=== PATIENT | female | born 1970 | race Caucasian/White ===

== ENCOUNTER → 2017-08-17 15:25 | Outpatient (CLI) | payer OTHER, SELFPAY ==
--- NOTE | 2017-08-17 15:26 | DI.MG.S_ITS ---
BILATERAL DIGITAL SCREENING MAMMOGRAM 3D/2D WITH CAD: 08/17/2017 CLINICAL: Routine screening. Comparison is made to exam dated: 09/30/2012 [facility]. The tissue of both breasts is heterogeneously dense. This may lower the sensitivity of mammography. Current study was also evaluated with a Computer Aided Detection (CAD) system. No significant masses, calcifications, or other findings are seen in either breast. There has been no significant interval change. IMPRESSION: NEGATIVE There is no mammographic evidence of malignancy. A 1 year screening mammogram is recommended. This exam was interpreted at Station ID: [id number]. NOTE: For mammograms, a report in lay terms will be sent to the patient. Approximately 15% of breast malignancies will not be visualized mammographically. In the management of a palpable breast mass, a negative mammogram must not discourage biopsy of a clinically suspicious lesion. Electronically Signed By: Nicholas de souza/berhane:08/17/2017 16:20:24 letter sent: Normal Exam ACR BI-RADS Category 1: Negative [id number]
== END ==
PROVIDERS: Family Provider Family Medicine; PCP Family Medicine; Visit Provider Family Medicine
DX: Z12.31 Encounter for screening mammogram for malignant neoplasm of breast (principal)
CPT/HCPCS: 77063; 77067

== ENCOUNTER → 2018-03-24 14:11 | Outpatient (CLI) | payer OTHER, SELFPAY ==
--- NOTE | 2018-03-24 14:14 | DI.RAD.S_ITS ---
PROCEDURE: XR CERVICAL SPINE 2V OR 3V INDICATIONS: Chronic neck pain TECHNIQUE: 3 view(s) of the cervical spine were acquired. COMPARISON: [facility], , CERVICAL SPINE 2 OR 3 VIEWS, 08/15/2016, 14:56. FINDINGS: Bones: No fractures or dislocations to the T1 level. The lateral masses of C1 appear intact on the odontoid view. No suspicious bony lesions. Only mild degenerative disc height reduction is present at C5-6 through C7-T1, without worsening over time, without subluxation. Soft tissues: No prevertebral soft tissue swelling. IMPRESSION: Stable appearing cervical spine with mild degenerative disc disease from C5-C7, and no sign of trauma or subluxation. Dictated by: Brody Smith M.D. on 03/24/2018 at 16:20 Approved by: Brody Smith M.D. on 03/24/2018 at 16:23
== END ==
PROVIDERS: PCP Family Medicine; Visit Provider Registered Nurse
DX: M50.322 Other cervical disc degeneration at C5-C6 level (principal)
CPT/HCPCS: 72040

== ENCOUNTER → 2019-01-31 17:47 | Outpatient (CLI) | payer OTHER, SELFPAY | PROVIDERS: PCP Family Medicine; Visit Provider Physician Assistant | DX: L02.91 Cutaneous abscess, unspecified (principal) | CPT/HCPCS: 87070; 87075; 87077; 87147; 87186; 87205 ==

== ENCOUNTER → 2019-04-04 20:00 | Outpatient (CLI) | payer OTHER, SELFPAY ==
[2019-04-04 20:43] LABS: Influenza A - CEPHEID Flu A NEGATIVE (NEGATIVE); Influenza B - CEPHEID Flu B NEGATIVE (NEGATIVE)
== END ==
PROVIDERS: PCP Family Medicine; Visit Provider Nurse Practitioner
DX: R05 Cough (principal)
CPT/HCPCS: 87502

== ENCOUNTER → 2019-04-09 14:20 | Outpatient (CLI) | payer OTHER, SELFPAY ==
--- NOTE | 2019-04-09 14:22 | DI.RAD.S_ITS ---
PROCEDURE: XR CHEST 2V INDICATIONS: r/o pneumonia TECHNIQUE: 2 views of the chest were acquired. COMPARISON: None. FINDINGS: Surgical changes and devices: None. Lungs and pleura: Lungs are clear. No pleural effusions or pneumothorax. Mediastinum: Mediastinal contours are normal. Heart size is normal. Bones and chest wall: No suspicious bony abnormalities. Soft tissues appear unremarkable. IMPRESSION: 1. No evidence of pneumonia. Dictated by: Nicholas Meza M.D. on 04/09/2019 at 13:49 Approved by: Nicholas Meza M.D. on 04/09/2019 at 13:50
== END ==
PROVIDERS: PCP Family Medicine; Referring Provider Physician Assistant; Visit Provider Physician Assistant
DX: J40 Bronchitis, not specified as acute or chronic (principal)
CPT/HCPCS: 71046

== ENCOUNTER → 2019-05-06 14:56 | Outpatient (CLI) | payer OTHER, SELFPAY ==
[2019-05-08 05:38] LABS: COVID19 Sendout Not Detected (Not Detected)
== END ==
PROVIDERS: PCP Family Medicine; Visit Provider Family Medicine
DX: J40 Bronchitis, not specified as acute or chronic (principal)
CPT/HCPCS: 87635

== ENCOUNTER → 2020-01-02 12:13 | Outpatient (CLI) | payer OTHER, SELFPAY ==
--- NOTE | 2020-01-02 12:14 | DI.RAD.S_ITS ---
PROCEDURE: XR FOOT RT MIN 3V INDICATIONS: right heel pain TECHNIQUE: 3 views of the foot were acquired. COMPARISON: [facility], , FOOT 3V LEFT, 11/02/2015, 9:03. FINDINGS: Bones: No fractures or dislocations. No suspicious bony lesions. There is a small plantar fascia insertion spur at the posterior calcaneus. Soft tissues: No tibiotalar joint effusion. Achilles tendon appears normal. IMPRESSION: Normal for age, a definite source of current foot pain symptoms is not seen but please correlate for possible focal plantar fasciitis associated with the small plantar fascia insertion spur at the posterior calcaneus. Dictated by: Brody Smith M.D. on 01/02/2020 at 13:02 Approved by: Brody Smith M.D. on 01/02/2020 at 13:03
== END ==
PROVIDERS: PCP Family Medicine; Referring Provider Family Medicine; Visit Provider Family Medicine
DX: M79.671 Pain in right foot (principal)
CPT/HCPCS: 73630

== ENCOUNTER → 2020-03-03 11:03 | Outpatient (CLI) | payer OTHER, SELFPAY ==
[2020-03-03 12:17] LABS: Add Manual Diff / Slide Review NO; Basophils Absolute Auto 0 /uL (0-100); Basophils Percent Auto 0.6 % (0-2); Eosinophils Absolute Auto 300 /uL (0-450); Eosinophils Percent Auto 5.4 % (2-4); Hematocrit 37.9 % (36-46); Hemoglobin 12.5 g/dL (12.0-16.0); Lymphocytes Absolute Auto 1700 /uL (1100-4500); Lymphocytes Percent Auto 27.9 % (25-40); Mean Corpuscular HGB Conc 33.1 % (30-36); Mean Corpuscular Hemoglobin 27.4 PG (26-34); Monocytes Absolute Auto 400 /uL (0-900); Monocytes Percent Auto 6.6 % (3-14); Neutrophils Absolute Auto 3500 /uL (1500-7000); Neutrophils Percent Auto 59.5 % (50-75); Platelet Count 257 X10^3/uL (150-400); Red Blood Cell Count 4.56 X10^6/uL (4.0-5.2); Red Cell Distribution Width 14.6 % (11.6-14.8); White Blood Cell Count 5.9 X10^3/uL (4.5-11.0)
[2020-03-03 12:39] LABS: Erythrocyte Sedimentation Rate 17 MM/HR (0-20)
[2020-03-03 12:47] LABS: Alanine Aminotransferase 32 IU/L (<35); Albumin 4.4 g/dL (3.5-5.0); Albumin Globulin Ratio 1.4 (1.0-2.8); Alkaline Phosphatase 73 U/L (38-126); Aspartate Aminotransferase 27 IU/L (14-36); BUN Creatinine Ratio 23.5 (6-22); Bilirubin Total 0.3 mg/dL (0.2-1.3); Blood Urea Nitrogen 20 mg/dL (7-17); C-Reactive Protein Quant 0.6 mg/dL (<1.0); Calcium 9.5 mg/dL (8.4-10.2); Carbon Dioxide 28 mmol/L (22-32); Chloride 106 mmol/L (98-107); Estimated Glomerular Filt Rate > 60.0 mL/min (>60); Globulin 3.1 g/dL (1.7-4.1); Glucose 103 mg/dL (70-100); HEMOLYSIS < 15 (0-50); Potassium 3.9 mmol/L (3.4-5.1); Sodium 141 mmol/L (137-145); Total Protein 7.5 g/dL (6.3-8.2)
== END ==
PROVIDERS: PCP Family Medicine; Referring Provider Family Medicine; Visit Provider Family Medicine
DX: K92.1 Melena (principal)
CPT/HCPCS: 36415; 80053; 85025; 85651; 86140

== ENCOUNTER 2021-08-05 19:58 | Emergency (ER) | payer OTHER, SELFPAY ==
[2021-08-05 20:18] VITALS: BP 129/86; PULSE 77; RESP 16; TEMP 36.1; O2SAT 98; BMI 29.9
--- NOTE | 2021-08-05 23:24 | ED.WOUNDLAC ---
HPI - Wound/Laceration General Chief Complaint: Wound/Laceration Stated Complaint: SPLIT RIGHT HODGSON OPEN Time Seen by Provider: 08/05/21 23:21 Mode of arrival: Family Vehicle History of Present Illness HPI narrative: 50F nonsmoker without significant medical history presents with an accidental laceration to her right hodgson suffered earlier tonight. She and her were moving a large bookshelf when it fell and injured her leg. She's been bleeding minimally and has some pain with ambualtion, but it is minimal. She denies any other injuries otherwise well and free of complaint. Her tetanus will need to be updated. Related Data Previous Rx's Medication Instructions Recorded methocarbamol 500 mg tablet See Rx Instructions PO Q6-8H PRN 02/11/21 muscle spasm #6 tabs cephalexin 500 mg capsule 500 mg PO Q6H 7 days #28 caps 08/05/21 Allergies Allergy/AdvReac Type Severity Reaction Status Date / Time Penicillins [PENICILLINS] Allergy Unknown HIVES Verified 08/05/21 20:21 Sulfa (Sulfonamide Allergy Unknown HIVES Verified 08/05/21 20:21 Antibiotics) [SULFA (SULFONAMIDE ANTIBIOTICS)] Review of Systems Review of Systems Narrative: GENERAL: Denies chills, fatigue, malaise, fever, sweats. HEENT: Denies sinus pain, ear pain, sore throat, difficulty swallowing, dizziness. RESPIRATORY: Denies dyspnea, cough, wheezing, hemoptysis, sputum. CARDIOVASCULAR: Denies chest pain, palpitations, orthopnea, edema, GASTROINTESTINAL: Denies nausea, vomiting, abdominal pain, diarrhea, constipation, melena. : Denies dysuria, frequency, incontinence, hematuria, urinary retention. MUSCULOSKELETAL: denies weakness, joint pain, or bony pain SKIN: See HPI NEUROLOGIC: Denies weakness, headache, numbness, change in speech, confusion, seizures, incoordination. PSYCHIATRIC: No concerning psychosocial issues. 12 point review of systems is negative except for those stated above Patient History Medical History Menorrhagia Social History marital status: number of children: 2 household members: spouse and family lives independently: Yes caregiver/support person: No housing: house education level: college occupational status: employed Smoking Status: Never smoker second hand exposure: No alcohol intake: never substance use type: does not use Smoking Status: Never smoker Substance Use Type: does not use Exam Narrative Exam Narrative: GEN: AOx3 and in mild distress EYES: Pupils are equal, round, and reactive to light and accommodation. Extraoccular muscles are intact bilaterally. There is no subconjunctival hemorrhage or exudate. CHEST: Lungs are clear to auscultation bilaterally and free of wheezes, rales, or rhonchi. Heart rate is regular rhythm, there are no murmurs, clicks, rubs, or gallops. There is no chest wall tenderness. ABD: Abdomen is soft and nontender. There is no guarding or rebound. Bowel sounds are normal in all 4 quadrants. There is no mass or organomegaly. EXT: Right anterior hodgson has a 6 cm irregular laceration with minimal bleeding. There is no foreign body, deep structures intact Full painless ROM of all extremities with no loss of sensation or strength. SKIN: Warm, pink, and dry. No erythema or rash Initial Vital Signs Initial Vital Signs: Vital Signs Temperature 97 F L 08/05/21 20:18 Pulse Rate 77 08/05/21 20:18 Respiratory Rate 16 08/05/21 20:18 Blood Pressure 129/86 08/05/21 20:18 Pulse Oximetry 98 08/05/21 20:18 Oxygen Delivery Method 08/05/21 20:18 Procedures Laceration Repair Laceration 1: Site: lower extremity Side (If applicable): right Size (cm): 6 Description: irregular and clean Depth: simple, single layer Local Anesthetic: lidocaine 1% and with bicarb Amount of anesthesia used (mL): 6 Pre-repair: wound explored and cleansed with chlorhexadine Skin layer closed with: nylon Skin layer suture size: 4-0 Number of sutures: 6 Technique: simple, interrupted and horizontal mattress Course Orders Ordered: Discontinued Medications Diphtheria/Tetanus/Acell Pertussis (Tet,Diph,Pertuss(Acell),Vac/Pf 0.5 Ml Syringe) 0.5 ml IM .ONCE ONE Stop: 08/05/21 20:22 Last Admin: 08/05/21 23:37 Dose: 0.5 ml Documented By: SIERRA Tetanus/Diphtheria Toxoids (Tetanus Diphtheria Toxoids 0.5 Ml Vial) 0.5 ml IM .ONCE ONE Stop: 08/05/21 23:33 Last Admin: 08/05/21 23:38 Dose: Not Given Documented By: SIERRA Vital Signs Vital signs: Vital Signs - 8 hr 08/05/21 20:18 Temperature 97 F L Pulse Rate 77 Respiratory Rate 16 Blood Pressure 129/86 Pulse Oximetry 98 Oxygen Delivery Method Room Air Discharge Plan Departure Patient Disposition: Home Clinical Impression: Laceration of right lower leg Instructions: DI for Laceration Repair Activity Restrictions/Additional Instructions: *You have been diagnosed with [right lower extremity laceration] *What to do: *Please continue to take your regular medications as directed. [x ] New medication prescriptions sent to your pharmacy: [[facility]] [ ] New medication written as a paper prescription [ ] No new medications given * Please keep the wound clean and dry to the best of your ability. Please monitor for signs of infection such as redness to the skin or increasing pain. Have the sutures/ramakrishna removed by your doctor in about 7 days. If you are unable to get into your doctor, we would be happy to remove the sutures/ramakrishna in that same timeframe. *If you do not have a primary care provider please contact the [facility] Resource line at [phone]. They will ask some questions about your medical history and help get you set up with a doctor in the community. *Return to Emergency Department if you should have any new, worsening or concerning symptoms, such as [fever greater than 101 F, shaking chills, worsening pain, persistent vomiting or other bothersome symptoms] Prescriptions: New cephalexin 500 mg capsule 500 mg PO Q6H 7 Days Qty: 28 0RF No Action methocarbamol 500 mg tablet See Rx Instructions PO Q6-8H PRN (Reason: muscle spasm) Qty: 6 0RF Rx Instructions: 1-2 tablets PO every 6-8 hours PRN; Referrals: Crystal Cruz MD [Primary Care Provider] - Visit Report Forms: Patient Portal/API
[2021-08-05] MEDS: TET,DIPH,PERTUSS(ACELL),VAC/PF 0.5 ML SYRINGE IM (23:37)
== END 2021-08-06 00:13 | disposition home or self-care (01) ==
PROVIDERS: Emergency Provider Emergency Medicine; PCP Family Medicine
DX: S81.811A Laceration without foreign body, right lower leg, initial encounter (principal); W19.XXXA Unspecified fall, initial encounter
CPT/HCPCS: 12002; 90471; 99283; 90715

== ENCOUNTER → 2021-08-19 07:55 | Outpatient (CLI) | payer OTHER, SELFPAY ==
[2021-08-19 10:10] LABS: Cholesterol 243 mg/dL (140-199); HDL Cholesterol 53 mg/dL (40-60); LDL Cholesterol Calculated 165 mg/dL (<100); Triglycerides 126 mg/dL (35-150)
== END ==
PROVIDERS: PCP Family Medicine; Referring Provider Family Medicine; Visit Provider Family Medicine
DX: E78.5 Hyperlipidemia, unspecified (principal)
CPT/HCPCS: 36415; 80061

== ENCOUNTER → 2022-01-21 14:25 | Outpatient (CLI) | payer OTHER, SELFPAY ==
--- NOTE | 2022-01-21 14:27 | DI.RAD.S_ITS ---
PROCEDURE: XR CHEST 2V INDICATIONS: Increased albuterol requirement, crackles on exam TECHNIQUE: 2 views of the chest were acquired. COMPARISON: [facility], CR, XR CHEST 2V, 04/09/2019, 14:16. FINDINGS: Surgical changes and devices: None. Lungs and pleura: Lungs are clear. No pleural effusions or pneumothorax. Mediastinum: Mediastinal contours are normal. Heart size is normal. Bones and chest wall: No suspicious bony abnormalities. Soft tissues appear unremarkable. IMPRESSION: No acute cardiopulmonary process demonstrated radiographically. Dictated by: Daniel Hamlin M.D. on 01/21/2022 at 16:01 Approved by: Daniel Hamlin M.D. on 01/21/2022 at 16:01
== END ==
PROVIDERS: PCP Family Medicine; Referring Provider Family Medicine; Visit Provider Family Medicine
DX: R06.2 Wheezing (principal)
CPT/HCPCS: 71046

== ENCOUNTER → 2022-03-11 16:35 | Outpatient (CLI) | payer OTHER, SELFPAY ==
--- NOTE | 2022-03-11 16:36 | DI.RAD.S_ITS ---
PROCEDURE: XR HAND LT MIN 3V INDICATIONS: Pain left thumb at MCP suspect OA TECHNIQUE: 3 views of the hand(s) acquired. COMPARISON: None. FINDINGS: Bones: No fractures or dislocations. Carpal bones are normally aligned. No suspicious bony lesions. No appreciable joint space narrowing. No erosions. Soft tissues: No suspicious soft tissue calcifications. IMPRESSION: No appreciable arthritic change. Dictated by: Mariann Beebe M.D. on 03/11/2022 at 18:28 Approved by: Mariann Beebe M.D. on 03/11/2022 at 18:29
== END ==
PROVIDERS: PCP Family Medicine; Referring Provider Physician Assistant; Visit Provider Physician Assistant
DX: M79.645 Pain in left finger(s) (principal)
CPT/HCPCS: 73130

== ENCOUNTER 2022-05-13 00:57 | Emergency (ER) | payer OTHER, SELFPAY ==
[2022-05-13] VITALS (18 sets, daily range): BP systolic 88–125; BP diastolic 51–75; PULSE 64–83; RESP 32; TEMP 36.4; O2SAT 94–100; BMI 29.9
--- NOTE | 2022-05-13 01:04 | ED_ITS ---
HPI - General Adult General Chief complaint: Syncope Stated complaint: colonoscopy prep done/vomiting/passed out Time Seen by Provider: 05/13/22 01:03 History of Present Illness HPI narrative: 51-year-old femaleNonsmoker without any chronic medical problems presents with her in the chief complaint of multiple episodes of nausea, vomiting and diarrhea along with at least 1 syncopal episode while on a toy. She is scheduled for a routine colonoscopy later this morning and had been in her normal state of health until employing her surgeons bowel prep. She would made it through most of the day and then last evening started developing nausea and vomiting. Her syncopal episode happened while on the toilet while she was both vomiting and having loose stools. She is had no fever or chills. She denies exposure to antibiotics or bad foods. She denies exposure to other ill persons. She feels worn out, dizzy and lightheaded Related Data Allergies Allergy/AdvReac Type Severity Reaction Status Date / Time Penicillins [PENICILLINS] Allergy Unknown HIVES Verified 05/13/22 07:30 Sulfa (Sulfonamide Allergy Unknown HIVES Verified 05/13/22 07:30 Antibiotics) [SULFA (SULFONAMIDE ANTIBIOTICS)] Review of Systems Review of Systems Narrative: GENERAL: See HPI HEENT: Denies sinus pain, ear pain, sore throat, difficulty swallowing, dizziness. RESPIRATORY: Denies dyspnea, cough, wheezing, hemoptysis, sputum. CARDIOVASCULAR: Denies chest pain, palpitations, orthopnea, edema, GASTROINTESTINAL: See HPI : Denies dysuria, frequency, incontinence, hematuria, urinary retention. MUSCULOSKELETAL: denies weakness, joint pain, or bony pain SKIN: Denies rash, skin lesions, or other NEUROLOGIC: Denies weakness, headache, numbness, change in speech, confusion, seizures, incoordination. PSYCHIATRIC: No concerning psychosocial issues. 12 point review of systems is negative except for those stated above Patient History Medical History Menorrhagia Social History marital status: number of children: 2 household members: spouse and family lives independently: Yes caregiver/support person: No housing: house education level: college occupational status: employed Smoking Status: Never smoker second hand exposure: No alcohol intake: never substance use type: does not use Smoking Status: Never smoker Substance Use Type: does not use Exam Narrative Exam Narrative: GENERAL: 51[] year old patient appears stated age. Well-developed patient, in mild distress. Holding an emesis bag HEAD: Atraumatic. Normocephalic. EYES: Pupils equal round and reactive. Extraocular motions intact. No scleral icterus. No injection or drainage. ENT: Nose without bleeding, purulent drainage. Throat without erythema, tonsillar hypertrophy or exudate. Airway patent. NECK: Trachea midline. Non tender CARDIOVASCULAR: Regular rate and rhythm without murmurs, gallops, or rubs. RESPIRATORY: Clear to auscultation. Breath sounds equal bilaterally. No wheezes, rales, or rhonchi. GASTROINTESTINAL: Abdomen soft, non-tender, nondistended. EXTREMITIES: No edema or joint tenderness. BACK: Nontender without deformity or crepitance. No flank tenderness. NEURO: AOx3. SKIN: No rash or erythema of visible areas Initial Vital Signs Initial Vital Signs: Vital Signs Temperature 97.6 F 05/13/22 01:06 Pulse Rate 81 05/13/22 01:06 Respiratory Rate 32 H 05/13/22 01:06 Blood Pressure 125/75 05/13/22 01:06 Pulse Oximetry 100 05/13/22 01:06 Oxygen Delivery Method Room Air 05/13/22 01:06 Course Orders Ordered: Discontinued Medications Aspirin (Aspirin 81 Mg Chew Tab) 324 mg PO NOW ONE Stop: 05/13/22 01:12 Last Admin: 05/13/22 01:50 Dose: 324 mg Documented By: GLADYS Sodium Chloride (Normal Saline 0.9%) 1,000 mls @ 1,000 mls/hr IV BOLUS ONE Stop: 05/13/22 04:18 Last Infusion: 05/13/22 03:29 Dose: 0 mls/hr Documented By: Admin: 05/13/22 03:25 Dose: 1,000 mls/hr Documented By: GLADYS Ondansetron HCl (Ondansetron 4 Mg/2 Ml Inj) 4 mg IV NOW ONE Stop: 05/13/22 03:20 Last Admin: 05/13/22 03:26 Dose: 4 mg Documented By: GLADYS Pantoprazole Sodium (Pantoprazole 40 Mg Vial) 40 mg IV NOW ONE Stop: 05/13/22 03:20 Last Admin: 05/13/22 03:26 Dose: 40 mg Documented By: GLADYS Reevaluation(s) Reevaluation #1: Patient feeling better after above-stated therapies Consultations Consultation #1: Discussed with on-call surgeon, Dr. Chavez, this patient is scheduled to have colonoscopy with her, she recommends continuing to hydrate, happy with Zofran and Protonix, asked that we keep patient in the emergency department and she will take her to the endoscopy suite at about 715 in the morning Vital Signs Vital signs: Vital Signs - 8 hr 05/13/22 01:06 Temperature 97.6 F Pulse Rate 81 Respiratory Rate 32 H Blood Pressure 125/75 Pulse Oximetry 100 Oxygen Delivery Method Room Air Medical Decision Making Lab Data 05/13/22 01:15 05/13/22 01:15 Labs: Lab Results 05/13/22 05/13/22 05/13/22 Range/Units 01:15 01:15 01:15 WBC 9.9 (4.5-11.0) X10^3/uL RBC 5.39 H (4.0-5.2) X10^6/uL Hgb 16.1 H (12.0-16.0) g/dL Hct 47.5 H (36-46) % MCV 88.0 (80-100) fL MCH 29.9 (26-34) PG MCHC 33.9 (30-36) % RDW 13.4 (11.6-14.8) % Plt Count 301 (150-400) X10^3/uL Neut % (Auto) 64.3 (50-75) % Lymph % (Auto) 26.5 (25-40) % Dougherty % (Auto) 6.1 (3-14) % Eos % (Auto) 2.6 (2-4) % Baso % (Auto) 0.5 (0-2) % Neut # (Auto) 6400 (0333-7859) /uL Lymph # (Auto) 2600 (4866-0973) /uL Dougherty # (Auto) 600 (0-900) /uL Eos # (Auto) 300 (0-450) /uL Baso # (Auto) 0 (0-100) /uL PT 11.9 (10.1-12.7) SECONDS INR 1.0 (0.9-1.3) APTT 30 (26-36) SECONDS Sodium 140 (137-145) mmol/L Potassium 3.9 (3.4-5.1) mmol/L Chloride 102 (98-107) mmol/L Carbon Dioxide 20 L (22-32) mmol/L BUN 15 (7-17) mg/dL Creatinine 0.94 (0.52-1.04) mg/dL Estimated GFR > 60 (>60) mL/min BUN/Creatinine Ratio 16.0 (6-22) Glucose 175 H (70-100) mg/dL Calcium 10.2 (8.4-10.2) mg/dL Magnesium 2.0 (1.6-2.3) mg/dL Total Bilirubin 0.8 (0.2-1.3) mg/dL AST 31 (14-36) IU/L ALT 44 H (<35) IU/L Alkaline Phosphatase 88 (38-126) U/L Total Creatine Kinase 107 (30-135) U/L CK-MB (CK-2) 1.08 (<2.37) ng/mL CK-MB (CK-2) Rel Index 1.0 L (1.5-5.0) % Troponin I < 0.012 (0.01-0.034) ng/mL Total Protein 9.1 H (6.3-8.2) g/dL Albumin 5.3 H (3.5-5.0) g/dL Globulin 3.8 (1.7-4.1) g/dL Albumin/Globulin Ratio 1.4 (1.0-2.8) Lipase 121 (23-300) U/L SARS-CoV-2 (PCR) (Negative) 05/13/22 Range/Units 01:25 WBC (4.5-11.0) X10^3/uL RBC (4.0-5.2) X10^6/uL Hgb (12.0-16.0) g/dL Hct (36-46) % MCV (80-100) fL MCH (26-34) PG MCHC (30-36) % RDW (11.6-14.8) % Plt Count (150-400) X10^3/uL Neut % (Auto) (50-75) % Lymph % (Auto) (25-40) % Dougherty % (Auto) (3-14) % Eos % (Auto) (2-4) % Baso % (Auto) (0-2) % Neut # (Auto) (7053-1421) /uL Lymph # (Auto) (9379-3207) /uL Dougherty # (Auto) (0-900) /uL Eos # (Auto) (0-450) /uL Baso # (Auto) (0-100) /uL PT (10.1-12.7) SECONDS INR (0.9-1.3) APTT (26-36) SECONDS Sodium (137-145) mmol/L Potassium (3.4-5.1) mmol/L Chloride (98-107) mmol/L Carbon Dioxide (22-32) mmol/L BUN (7-17) mg/dL Creatinine (0.52-1.04) mg/dL Estimated GFR (>60) mL/min BUN/Creatinine Ratio (6-22) Glucose (70-100) mg/dL Calcium (8.4-10.2) mg/dL Magnesium (1.6-2.3) mg/dL Total Bilirubin (0.2-1.3) mg/dL AST (14-36) IU/L ALT (<35) IU/L Alkaline Phosphatase (38-126) U/L Total Creatine Kinase (30-135) U/L CK-MB (CK-2) (<2.37) ng/mL CK-MB (CK-2) Rel Index (1.5-5.0) % Troponin I (0.01-0.034) ng/mL Total Protein (6.3-8.2) g/dL Albumin (3.5-5.0) g/dL Globulin (1.7-4.1) g/dL Albumin/Globulin Ratio (1.0-2.8) Lipase (23-300) U/L SARS-CoV-2 (PCR) Negative (Negative) Point of Care Testing Glucose POC 156 Point of care testing: Point of Care Testing Glucose POC 156 [facility] Narrative Medical decision making narrative: [51] year old patient presents with nausea, vomiting and diarrhea after she started her colon prep Multiple etiologies for patient's symptoms considered including, but not limited to: [Intolerance to: Prep, gastroenteritis versus other] Prior Charts reviewed in our EMR Primary Historian: patient Labs reviewed and interpreted by myself: No significant abnormal findings that would require a specific or immediate intervention Consultations: Discussed with Dr. Chavez (Gen Surg) happy with treatments given, request we keep her in the emergency department until later in the morning and she will take 2 endoscopy to perform her regularly scheduled scopes Patient's symptoms improved over duration of stay with above-stated therapies. Findings and discharge diagnosis discussed with patient/family followed by verbalization of understanding Return precautions discussed with patient/family whom verbalize understanding of diagnosis and plan Discharge Plan Departure Patient Disposition: Home Clinical Impression: Vasovagal syncope, Diarrhea, Vomiting Instructions: Diarrhea Activity Restrictions/Additional Instructions: Please proceed directly to [place] registration, the OR crew and endoscopy team are expected Referrals: Andreina Chavez MD [Physician] - Crystal Cruz MD [Primary Care Provider] - Stand Alone Forms: Patient Portal/API
[2022-05-13 01:25] LABS: Add Manual Diff / Slide Review NO; Basophils Absolute Auto 0 /uL (0-100); Basophils Percent Auto 0.5 % (0-2); Eosinophils Absolute Auto 300 /uL (0-450); Eosinophils Percent Auto 2.6 % (2-4); Hematocrit 47.5 % (36-46); Hemoglobin 16.1 g/dL (12.0-16.0); Lymphocytes Absolute Auto 2600 /uL (1100-4500); Lymphocytes Percent Auto 26.5 % (25-40); Mean Corpuscular HGB Conc 33.9 % (30-36); Mean Corpuscular Hemoglobin 29.9 PG (26-34); Monocytes Absolute Auto 600 /uL (0-900); Monocytes Percent Auto 6.1 % (3-14); Neutrophils Absolute Auto 6400 /uL (1500-7000); Neutrophils Percent Auto 64.3 % (50-75); Platelet Count 301 X10^3/uL (150-400); Red Blood Cell Count 5.39 X10^6/uL (4.0-5.2); Red Cell Distribution Width 13.4 % (11.6-14.8); White Blood Cell Count 9.9 X10^3/uL (4.5-11.0)
[2022-05-13 01:34] LABS: Prothrombin Time 11.9 SECONDS (10.1-12.7)
[2022-05-13 01:37] LABS: PTT Partial Thromboplastin Tim 30 SECONDS (26-36)
[2022-05-13 01:40] LABS: Alanine Aminotransferase 44 IU/L (<35); Albumin 5.3 g/dL (3.5-5.0); Albumin Globulin Ratio 1.4 (1.0-2.8); Alkaline Phosphatase 88 U/L (38-126); Aspartate Aminotransferase 31 IU/L (14-36); Bilirubin Total 0.8 mg/dL (0.2-1.3); Blood Urea Nitrogen 15 mg/dL (7-17); Calcium 10.2 mg/dL (8.4-10.2); Carbon Dioxide 20 mmol/L (22-32); Chloride 102 mmol/L (98-107); Creatine Kinase 107 U/L (30-135); Estimated Glomerular Filt Rate > 60 mL/min (>60); Globulin 3.8 g/dL (1.7-4.1); Glucose 175 mg/dL (70-100); HEMOLYSIS < 15 (0-50); Lipase 121 U/L (23-300); Potassium 3.9 mmol/L (3.4-5.1); Sodium 140 mmol/L (137-145); Total Protein 9.1 g/dL (6.3-8.2)
[2022-05-13 01:50] LABS: COVID19 -Nasal RAPID Negative (Negative)
[2022-05-13] MEDS: ASPIRIN 81 MG CHEW TAB 324 MG PO (01:50)
[2022-05-13 01:52] LABS: Troponin I < 0.012 ng/mL (0.01-0.034)
[2022-05-13 01:55] LABS: Creatine Kinase MB 1.08 ng/mL (<2.37)
[2022-05-13] MEDS: SODIUM CHLORIDE 0.9% 1,000 ML 1000 ML IV (03:25)
[2022-05-13] MEDS: ONDANSETRON 4 MG/2 ML INJ IV (03:26)
[2022-05-13] MEDS: PANTOPRAZOLE 40 MG VIAL IV (03:26)
== END 2022-05-13 07:14 | disposition home or self-care (01) ==
PROVIDERS: Emergency Provider Emergency Medicine; PCP Family Medicine
DX: R55 Syncope and collapse (principal); R19.7 Diarrhea, unspecified; Z20.822 Contact with and (suspected) exposure to COVID-19; R11.10 Vomiting, unspecified
CPT/HCPCS: 36415; 80053; 82550; 82553; 83690; 83735; 84484; 85025; 85610; 85730; 87635; 93005; C9803; C9113; J2405

== ENCOUNTER 2022-05-13 07:15 | Day surgery (SDC) | payer OTHER, SELFPAY ==
[2022-05-13 07:37] VITALS: BP 123/89; PULSE 77; RESP 16; TEMP 36.4; O2SAT 97; BMI 30.7
--- NOTE | 2022-05-13 07:45 | P.HP_ITS ---
History of Present Illness History of Present Illness Date Patient Seen: 05/13/22 Time Patient Seen: 07:45 Chief complaint: Screening Colonoscopy Narrative: Last colonoscopy was 20 yrs ago. Father has colon polyps. No current symptoms PFSH Medical History Menorrhagia Social History marital status: number of children: 2 household members: spouse and family lives independently: Yes caregiver/support person: No housing: house education level: college occupational status: employed Smoking Status: Never smoker second hand exposure: No alcohol intake: never substance use type: does not use Meds Home Medications and Allergies Allergies Allergy/AdvReac Type Severity Reaction Status Date / Time Penicillins [PENICILLINS] Allergy Unknown HIVES Verified 05/13/22 07:30 Sulfa (Sulfonamide Allergy Unknown HIVES Verified 05/13/22 07:30 Antibiotics) [SULFA (SULFONAMIDE ANTIBIOTICS)] Review of Systems Review of Systems ROS: Yes All systems reviewed with the patient and are negative except as otherwise documented Exam Const General: cooperative and healthy appearing [facility] Head: normal to inspection, normocephalic and atraumatic Eyes General: appearance normal, both eyes and all related structures Sclera: sclerae normal Neck Neck: trachea midline Resp Effort & Inspection: normal respiratory effort and able to speak in complete sentences GI Palpation: soft Skin General: elasticity normal Neuro General: patient alert, patient awake and patient oriented x3 Cognition: normal cognition Psych Appearance: grossly normal Mental Status: mental status grossly normal Judgment: judgment good Objective ECG Impression: colon cancer screening with colonoscopy under MAC Assessment & Plan COVID-19 COVID-19 status: Negative Time Spent With Patient Time with patient: less than 30 minutes
[2022-05-13] MEDS: LACTATED RINGERS 1,000 ML 150 ML IV (07:53)
--- NOTE | 2022-05-13 08:18 | PM.OP.COLON ---
Operative Date/Time/Diagnoses Date of procedure: 05/13/22 Time of procedure: 08:19 Pre-op diagnosis: colon cancer screening Post-op diagnosis: same Procedure & Clinicians Study performed: colonoscopy w MAC Same procedure as scheduled: Yes Indications: Colon cancer screening Surgeon: Andreina Chavez Procedure Notes Procedure in detail: Preop diagnosis: Colon cancer screening Postop diagnosis: Same Operative procedure: Colonoscopy under MAC Surgeon: Leda Chavez MD Findings: Scant moderate size diverticuli of the descending colon, 1 lipoma in the rectosigmoid region 6 mm in size not biopsied Procedure: Patient placed in lateral position. Rectal exam performed showing normal tone no masses. Colonoscope inserted into the rectum and advanced to ileocecal valve with minimal difficulty. Insufflation extraction of the scope including a retroflex in the rectum had the above findings Impression: No polyps, moderate size scant diverticuli of the descending colon. And 1 6 mm lipoma in the rectosigmoid region Plan: Repeat colonoscopy in 10 years unless otherwise indicated by change in clinical condition or family history Findings: divertiulosis Specimen(s): none sent Complications: none Post-procedure Recommendations: Colonoscopy in 10 years Follow up: as needed Disposition: PACU
[2022-05-13 08:35] VITALS: BP 102/65; PULSE 92; RESP 20; TEMP 36.3; O2SAT 92
[2022-05-13 08:41] VITALS: BP 98/61; PULSE 102; RESP 22; O2SAT 97
[2022-05-13 08:46] VITALS: BP 107/74; PULSE 93; RESP 22; O2SAT 93
--- NOTE | 2022-05-13 09:10 | SUR.PHASEII ---
DC home with WC ride to waiting at ER. All belongings and DC paperwork with patient
== END 2022-05-13 09:09 | disposition home or self-care (01) ==
PROVIDERS: PCP Family Medicine; Referring Provider Surgery; Visit Provider Surgery
PROC: 0DJD8ZZ Inspection of Lower Intestinal Tract, Via Natural or Artificial Opening Endoscopic (ICD-10-PCS; CPT 45378; principal; 2022-05-13 08:15)
DX: Z12.11 Encounter for screening for malignant neoplasm of colon (principal); K57.30 Diverticulosis of large intestine without perforation or abscess without bleeding; D17.5 Benign lipomatous neoplasm of intra-abdominal organs; Z20.822 Contact with and (suspected) exposure to COVID-19; R55 Syncope and collapse; R11.2 Nausea with vomiting, unspecified; R19.7 Diarrhea, unspecified; R11.10 Vomiting, unspecified
CPT/HCPCS: 45378; 36415; 80053; 82550; 82553; 83690; 83735; 84484; 85025; 85610; 85730; 87635; 93005; 96374; 96375; 99284; C9803; C9113; J2405; J2704

== ENCOUNTER → 2022-11-29 10:43 | Outpatient (CLI) | payer OTHER, SELFPAY ==
--- NOTE | 2022-11-29 | DI.MG.S_ITS ---
BILATERAL DIGITAL SCREENING MAMMOGRAM 3D/2D WITH CAD: 11/29/2022 CLINICAL: Routine screening. Comparison is made to exams dated: 08/17/2017 mammogram and 09/30/2012 mammogram - [facility]. There are scattered areas of fibroglandular density in both breasts (category b / 25%-50% glandular tissue). Current study was also evaluated with a Computer Aided Detection (CAD) system. No significant masses, calcifications, or other findings are seen in either breast. There has been no significant interval change. IMPRESSION: NEGATIVE There is no mammographic evidence of malignancy. A 1 year screening mammogram is recommended. Based on the Tyrer Cuzick model (a risk assessment model) the patient's lifetime risk is 5.2% and her 10 year risk is 1.4%. According to the ACR, ACS, and NCCN guidelines, an annual breast MRI exam along with mammogram is recommended if the patient's lifetime risk is 20% or greater. This exam was interpreted at Station ID: [id number]. NOTE: For mammograms, a report in lay terms will be sent to the patient. Approximately 15% of breast malignancies will not be visualized mammographically. In the management of a palpable breast mass, a negative mammogram must not discourage biopsy of a clinically suspicious lesion. Electronically Signed By: Matthew [email or web address]:12/01/2022 14:08:20 letter sent: Normal Exam ACR BI-RADS Category 1: Negative [id number]
== END ==
PROVIDERS: PCP Family Medicine; Referring Provider Family Medicine; Visit Provider Family Medicine
DX: Z12.31 Encounter for screening mammogram for malignant neoplasm of breast (principal)
CPT/HCPCS: 77063; 77067

== ENCOUNTER → 2023-03-14 15:13 | Outpatient (CLI) | payer OTHER, SELFPAY ==
[2023-03-14 16:08] LABS: Influenza A - CEPHEID Flu A NEGATIVE (NEGATIVE); Influenza B - CEPHEID Flu B NEGATIVE (NEGATIVE); Respiratory Syncytial Virus Negative (Negative)
[2023-03-14 16:10] LABS: COVID-19 CEPHEID 4-PLEX PCR Negative (Negative)
== END ==
PROVIDERS: PCP Family Medicine; Visit Provider Physician Assistant
DX: R06.02 Shortness of breath (principal)
CPT/HCPCS: 0241U

== ENCOUNTER → 2023-06-27 09:33 | Outpatient (CLI) | payer OTHER, SELFPAY ==
[2023-06-27 11:10] LABS: Hemoglobin A1C% w Est Avg Glu 5.8 % (4.0-6.0)
[2023-06-27 11:23] LABS: Alanine Aminotransferase 40 IU/L (<35); Albumin 4.5 g/dL (3.5-5.0); Albumin Globulin Ratio 1.8 (1.0-2.8); Alkaline Phosphatase 76 U/L (38-126); Aspartate Aminotransferase 29 IU/L (14-36); BUN Creatinine Ratio 17.3 (6-22); Bilirubin Total 0.8 mg/dL (0.2-1.3); Blood Urea Nitrogen 14 mg/dL (7-17); Calcium 9.3 mg/dL (8.4-10.2); Carbon Dioxide 29 mmol/L (22-32); Chloride 105 mmol/L (98-107); Cholesterol 220 mg/dL (140-199); Estimated Glomerular Filt Rate > 60 mL/min (>60); Globulin 2.5 g/dL (1.7-4.1); Glucose 87 mg/dL (70-100); HDL Cholesterol 47 mg/dL (40-60); HEMOLYSIS < 15 (0-50); LDL Cholesterol Calculated 139 mg/dL (<100); Potassium 4.6 mmol/L (3.4-5.1); Sodium 141 mmol/L (137-145); Triglycerides 171 mg/dL (35-150)
== END ==
PROVIDERS: PCP Family Medicine; Referring Provider Family Medicine; Visit Provider Family Medicine
DX: Z13.220 Encounter for screening for lipoid disorders (principal); R74.8 Abnormal levels of other serum enzymes; R73.9 Hyperglycemia, unspecified
CPT/HCPCS: 36415; 80053; 80061; 83036

== ENCOUNTER → 2023-07-22 07:47 | Outpatient (CLI) | payer OTHER, SELFPAY ==
[2023-07-22 08:32] LABS: Influenza A - CEPHEID Flu A NEGATIVE (NEGATIVE); Influenza B - CEPHEID Flu B NEGATIVE (NEGATIVE); Respiratory Syncytial Virus Negative (Negative)
[2023-07-22 08:33] LABS: COVID-19 CEPHEID 4-PLEX PCR Negative (Negative)
== END ==
PROVIDERS: PCP Family Medicine; Referring Provider Nurse Practitioner Family; Visit Provider Nurse Practitioner Family
DX: J02.9 Acute pharyngitis, unspecified (principal); R05.1 Acute cough
CPT/HCPCS: 0241U; 87070

== ENCOUNTER → 2023-10-29 17:40 | Outpatient (CLI) | payer OTHER, SELFPAY | LOC: LAB 17:40 | PROVIDERS: PCP Family Medicine; Visit Provider Physician Assistant Medical | DX: R30.0 Dysuria (principal) | CPT/HCPCS: 87077; 87086 ==